=== PATIENT | male | born 1995 | race American Indian/Alaskan Native ===

== ENCOUNTER 2017-01-04 04:01 | Emergency (ER) | payer SELFPAY ==
[2017-01-04 04:20] VITALS: BP 147/90
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
== END 2017-01-04 04:50 | disposition home or self-care (01) ==
LOC: FB.ED 04:01
DX: S01.412A Laceration without foreign body of left cheek and temporomandibular area, initial encounter (principal); F10.129 Alcohol abuse with intoxication, unspecified; X58.XXXA Exposure to other specified factors, initial encounter
CPT/HCPCS: 12011; 99282; A4217; 12013